=== PATIENT | male | born 1990 | race Caucasian/White ===

== ENCOUNTER 2020-01-22 06:25 | Day surgery (SDC) | payer OTHER ==
[~2020-01-22] VITALS: Ht 190.5 cm; Wt 91.6 kg
[2020-01-22] MEDS ORDERED: LR 1,000 ML IV ONE (07:00)
[2020-01-22] MEDS ORDERED: ceFAZolin 1GM VIAL (J0690 PER 500MG) As Ordered ONE (07:12)
[2020-01-22 07:18] LABS: MEAN CORPUSCULAR HEMOGLOBIN 26.3 pg (27.0-33.0); MEAN CORPUSCULAR HGB CONC 31.8 g/dl (32.0-36.5); MEAN CORPUSCULAR VOLUME 82.6 fl (80.0-96.0); PLATELET COUNT, AUTOMATED 225 10^3/uL (150-450); RED BLOOD COUNT 5.33 10^6/uL (4.30-6.10); WHITE BLOOD COUNT 5.7 10^3/uL (4.0-10.0)
[2020-01-22] MEDS ORDERED: BACITRACIN PWD 50,000 UNITS VIAL As Ordered ONE (07:19)
[2020-01-22] MEDS ORDERED: LIDOCAINE 2% W/EPINEPHRINE 20ML VIAL **PRES FREE As Ordered ONE (07:19)
[2020-01-22] MEDS ORDERED: BUPIVACAINE LIPOSOME/PF 1.3% 20ML VIAL (13.3MG/ML)(EXPAREL)(C9290 PER1MG) As Ordered ONE (07:19)
[2020-01-22] MEDS ORDERED: LIDOCAINE 2% 100MG/5ML SDV (FOR ANES.) As Ordered ONE (07:20)
[2020-01-22] MEDS ORDERED: dexameTHASONE 4 MG/ML 1ML VIAL (J1100 PER 1MG) As Ordered ONE (07:20)
[2020-01-22] MEDS ORDERED: propofoL 200 MG/20 ML VIAL As Ordered ONE ×2 (07:20→07:56)
[2020-01-22] MEDS ORDERED: ONDANSETRON 4MG/2ML VIAL As Ordered ONE (07:20)
[2020-01-22] MEDS ORDERED: MIDAZOLAM INJ 2MG/2ML VIAL (J2250 PER 1MG) As Ordered ONE (07:21)
[2020-01-22] MEDS ORDERED: fentaNYL 100 MCG/2 ML INJECTION (J3010) As Ordered ONE (07:21)
[2020-01-22] MEDS ORDERED: POVIDONE-IODINE 5% OPHTH PREP SOL 30ML As Ordered ONE (07:21)
[2020-01-22] MEDS ORDERED: METHYLENE BLUE 0.5% (5MG/ML) 10 ML AMP (PROVAYBLUE) As Ordered ONE (07:26)
[2020-01-22] MEDS ORDERED: ROCURONIUM BROMIDE 50 MG/5 ML VIAL As Ordered ONE (07:37)
[2020-01-22] MEDS ORDERED: ceFAZolin SOD 1 GM in D5W MINI-BAG PLUS 50 ML IV ONE (07:45)
[2020-01-22] MEDS ORDERED: SUGAMMADEX SODIUM 500 MG/5 ML VIAL (BRIDION) As Ordered ONE (08:14)
[2020-01-22] MEDS ORDERED: ACETAMINOPHEN 1000MG 100ML IV BTL (OFIRMEV) (J0131 PER 10MG) As Ordered ONE (08:14)
[2020-01-22] MEDS ORDERED: LACRILUBE (AKWA TEARS) OPHTH OINT 3.5 GM As Ordered ONE (08:29)
[2020-01-22] MEDS ORDERED: HYDROmorphone HCL 2 MG/ML 1ML VIAL (J1170) As Ordered ONE (08:51)
[2020-01-22] MEDS ORDERED: ceFAZolin 2 GM/D5W 50 ML IV BAG (J0690 PER 500MG) As Ordered ONE (09:10)
--- NOTE | 2020-01-22 10:05 | POST-OPPD ---
Postoperative Procedure Note Date Of Procedure: Jan 22, 2020 PREOPERATIVE DIAGNOSIS: Bilateral ear malformation POSTOPERATIVE DIAGNOSIS: same FINDINGS: Bilateral prominent ears and asymmetry Right more than left PROCEDURE: Bilateral otoplasty SURGEON: Dr Elena ANESTHESIA: General SPECIMENS: Right and left ear tissue ESTIMATED BLOOD LOSS: 20cc REPLACED: none DRAINS: none COMPLICATIONS: none POSTOPERATIVE CONDITION: stable Dict [id number] LOLA ELENA DO Jan 22, 2020 10:05
[2020-01-22] MEDS ORDERED: OXYC1TAB23 PO (10:07)
[2020-01-22] MEDS ORDERED: PERCOCET 5MG/325MG TAB PO PRN (10:15)
[2020-01-22] MEDS ORDERED: LR 1,000 ML IV SCH (10:15)
[2020-01-22] MEDS ORDERED: METOCLOPRAMIDE INJ 10MG/2ML VIAL (J2765 PER 1) IV PRN (10:15)
[2020-01-22] MEDS ORDERED: ONDANSETRON 4MG/2ML VIAL IV PRN (10:15)
[2020-01-22] MEDS ORDERED: MORPHINE 2 MG/ML 1ML VIAL (J2270) IV PRN (10:15)
[2020-01-22] MEDS ORDERED: fentaNYL 100 MCG/2 ML INJECTION (J3010) IV PRN (10:15)
[2020-01-22 14:25] VITALS: BP 141/72
--- NOTE | 2020-01-23 09:11 | RO ---
OPERATIVE NOTE DATE OF OPERATION: 01/22/2020 PREOPERATIVE DIAGNOSIS: Bilateral ear malformation. POSTOPERATIVE DIAGNOSIS: Bilateral ear malformation. FINDINGS: Bilateral prominent ears and asymmetry, right more than left. PROCEDURE: Bilateral otoplasty. ATTENDING SURGEON: Dr. Vuong. ANESTHESIA: General. SPECIMEN: Right and left ear tissue. BLOOD LOSS: 20 mL. No replacements. DRAINS: No drains. DESCRIPTION OF PROCEDURE: This is a 29-year-old male who has significant asymmetry and has protruding ears which interferes with his daily work. 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 Patient is scheduled for correction of deformity. He is aware that the right ear is much more protruding than the left. We will be trying to achieve symmetry with this procedure. Risks, benefits, and alternatives discussed with the patient in the preoperative holding area. Informed consent was obtained, and he was brought into the operating room and placed in the supine position. Preoperative antibiotics were given. Sequentials were placed on the lower calves. General anesthesia was induced. He was prepped and draped in the usual sterile fashion. We started procedure on the left side which was left prominent. His distance from the superior helix to the mastoid is 2 cm superiorly. We outlined the measurements of the antihelix from anterior to posterior portion and then the posterior incision was carried out. About 0.8 cm of skin flap was excised posteriorly until the cartilage was identified. Then we measured the amount of cartilage where the Mustarde sutures are going to be placed. The midportion of the cartilage, a thin strip excised in all entirety aiding to position the Mustarde sutures properly. Four sutures were placed and tied down and achieved a good correction on the left side. Hemostasis was obtained. Then we turned our attention to the right ear which had a small deformity and it is more anteriorly displaced. The measures were also made for the antihelix from anteriorly and transposed posteriorly. Measurements with the use of 30 gauge needle and methylene blue markings. Then incisions carried out on the posterior ear. About 1 cm of skin excess was removed. Then dissection was carried out until the posterior auricular cartilage identified, and dissection carried out medially toward the mastoid fascia. The middle portion of the cartilage was incised with 10 blade, and small strip was removed. The Mustarde sutures were placed, four in total, to correct the deformity. Superiorly it had some more wide angle than the left ear so an additional two permanent sutures were placed from the medial portion of the conchal cartilage to the mastoid fascia which corrected our angle and deformity. The permanent sutures were using a 4-0 FiberWire on both ears. After the symmetry was achieved, hemostasis was obtained, and then the skin flaps were closed with interrupted 4-0 Monocryl sutures. Steri-Strips and a bulky dressing were placed on the ears with a compression binder. Patient extubated in the operating room without any difficulty and transferred to the recovery room in stable condition.
== END 2020-01-22 14:25 | disposition home or self-care (01) ==
LOC: M SDC 06:25
PROVIDERS: ATTEND Plastic Surgery Surgery of the Hand
DX: Q17.5 Prominent ear (principal)
CPT/HCPCS: 36415; 69300; 85027; 88302; J0131; J0690; J1100; J1170; J2250; J2405; J3010; Q9968